=== PATIENT | female | born 1970 | race Caucasian/White ===

== ENCOUNTER 2018-11-30 10:40 | Emergency (ER) | payer OTHER ==
[~2018-11-30] VITALS: Ht 129.5 cm; Wt 113.4 kg
[~2018-11-30 10:40] MED LIST: ANAPROX275 MG PO
== END 2018-11-30 14:28 | disposition home or self-care (01) ==
LOC: ER 10:40
DX: J45.998 Other asthma (principal)

== ENCOUNTER 2022-11-08 09:25 | Emergency (ER) | payer OTHER ==
[~2022-11-08] VITALS: Ht 160 cm; Wt 113.4 kg
== END 2022-11-08 12:14 | disposition home or self-care (01) ==
LOC: ER 09:25
DX: R05.8 Other specified cough (principal); Z20.822 Contact with and (suspected) exposure to COVID-19